=== PATIENT | female | born 1975 | race African-American/Black ===

== ENCOUNTER 2022-09-06 18:31 | Emergency (ER) | payer OTHER ==
[~2022-09-06] VITALS: Ht 172.7 cm; Wt 132.0 kg
[2022-09-06 18:43] VITALS: BP 130/79
[2022-09-06] MEDS ORDERED: ACETAMINOPHEN 325MG TABLET PO STA (19:39)
[2022-09-06] MEDS ORDERED: MAGNESIUM/ALUMINUM HYDROXIDE/SIMETHICONE 30ML UDC PO STA (19:39)
[2022-09-06] MEDS ORDERED: NITROGLYCERIN 0.4MG TABLET SL SL PRN (20:00)
[2022-09-06] MEDS ORDERED: ASPIRIN 81MG TABLET PO ONE (20:00)
[2022-09-06 20:30] LABS: BASOPHILS % 0.5 % (0.0-2.0); EOSINOPHILS % 0.9 % (0.0-5.0); HEMATOCRIT. 39.8 % (36.0-48.0); HEMOGLOBIN. 13.2 g/dL (12.0-16.0); LYMPHOCYTES % 28.1 % (20.0-50.0); MEAN CORPUSCULAR HEMOGLOBIN 28.5 pg (28.0-32.0); MEAN PLATELET VOLUME 9.5 fl (7.4-10.4); MONOCYTES % 8.4 % (2.0-8.0); NEUTROPHILS % 62.1 % (40.0-76.0); PLATELET 267 x1000/uL (130-400); RED BLOOD CELL COUNT 4.63 mill/uL (4.2-5.4); RED CELL DISTRIBUTION WIDTH 14.3 % (11.6-14.6)
[2022-09-06 20:44] LABS: CHLORIDE 99 mEq/L (98-107)
[2022-09-06 20:47] LABS: HCG SCREEN NEGATIVE
== END 2022-09-06 23:42 | disposition home or self-care (01) ==
LOC: ER 18:31
DX: E07.89 Other specified disorders of thyroid (principal); R10.13 Epigastric pain; I10 Essential (primary) hypertension; Z90.710 Acquired absence of both cervix and uterus
CPT/HCPCS: 36415; 71045; 76700; 80053; 83690; 84484; 84703; 85025; 93005; 99285; Z7610